=== PATIENT | male | born 1985 | race Caucasian/White ===

== ENCOUNTER 2017-09-22 08:19 | Day surgery (SDC) | payer BC ==
[2017-09-21 12:56] VITALS: BMI 35.1
[2017-09-22] MEDS ORDERED: Lidocaine 1% w/Epinephrine 1:200K 30 ML VIAL ONE (10:42)
[2017-09-22] MEDS ORDERED: Bacitracin Zinc Ointment 30 gm TUBE ONE (10:42)
[2017-09-22] MEDS ORDERED: Fentanyl 250 MCG/5 ML VIAL ONE (10:47)
[2017-09-22] MEDS ORDERED: Midazolam HCl 2 mg/2 ml Vial ONE (10:47)
[2017-09-22] MEDS ORDERED: Fentanyl 100 MCG/2 ML VIAL ONE ×2 (12:37→12:53)
[2017-09-22] MEDS ORDERED: HYDROcodone/Acetaminophen 5/325 mg Tablet ONE (15:04)
[2017-09-22] MEDS ORDERED: Succinylcholine Chloride 20 MG/ML 10 ml SYRINGE FS ONE (15:16)
[2017-09-22] MEDS ORDERED: Propofol 200 MG/20 ML VIAL ONE (15:16)
[2017-09-22] MEDS ORDERED: Lidocaine 1% PF 5 ML VIAL ONE (15:16)
[2017-09-22] MEDS ORDERED: Esmolol 100 MG/10 ML VIAL ONE (15:16)
[2017-09-22] MEDS ORDERED: Ondansetron HCl/PF 4 MG/2 ML Vial ONE (15:16)
[2017-09-22] MEDS ORDERED: Dexamethasone 20 MG/5 ML VIAL ONE (15:16)
--- NOTE | 2017-09-23 14:28 | OP ---
DATE OF SURGERY: 09/22/2017 PREOPERATIVE DIAGNOSIS: Right parotid mass. POSTOPERATIVE DIAGNOSIS: Right parotid mass. PROCEDURES: Right superficial parotidectomy with facial nerve monitor. SURGEON: Cesar Connell M.D. ESTIMATED BLOOD LOSS: 20 mL COMPLICATIONS: None. ANESTHESIA: GETA. PROCEDURE IN DETAIL: The patient was taken to the operating room and placed supine on the table. Ge neral endotracheal anesthesia was obtained by the Anesthesia staff. Tube was secured in the left low er lip. Shoulder roll was placed, and the patient's head was gently turned exposing the right face a nd right parotid gland. Following this, the intraoperative facial nerve monitor electrodes were inse rted into the orbicularis chanel and the orbicularis oculi muscles were tested and noted to be working adequately and remained on throughout the procedure. Following this, the patient was prepped and cory ped in standard surgical fashion. Following this, 8 mL of 1% lidocaine with 1:100,000 epinephrine wa s injected via a 27-gauge needle into an area of the anticipated modified Shashi-type incision. Follo wing this, an incision was made with a 15 blade through skin and subcutaneous tissue in the preauricu lar crease and then extending around the earlobe approximately 1.5 cm and then carried onto a horizon nicolás skin crease in the neck approximately 2 cm below the angle of mandible. Following this, a fat up and fat down skin flap was elevated, exposing the parotid gland. Following this, the parotid gland and tail of the parotid gland was freed from the sternocleidomastoid muscle, it was then retracted an teriorly. Dissection was then carried down the tragal cartilage to the mastoid bone. The stylomasto id foramen was gently palpated, and the facial nerve was identified coursing from this. The dissecti on lateral to the nerve revealed the superior and inferior divisions of the nerve as the nerve was tr aced laterally. This 2.5 cm mass in a normal cuff of tissue was removed, superficial parotid gland. Following this, the wound was irrigated, a small drain was placed, and fascia of the residual paroti d gland was used to cover the large surgical defect after removal of the mass, and then the platysmal stitches were reapproximated with a Monocryl stitch, and subcuticular stitches were placed using Mon ocryl. Skin was closed using Prolene. The patient tolerated the procedure well.
== END 2017-09-22 15:20 | disposition home or self-care (01) ==
LOC: SDC 08:19
PROVIDERS: ATTEND Otolaryngology Plastic Surgery within the Head & Neck
PROC: 0CT80ZZ Resection of Right Parotid Gland, Open Approach (ICD-10-PCS; principal; 2017-09-22)
DX: C07 Malignant neoplasm of parotid gland (principal); F17.290 Nicotine dependence, other tobacco product, uncomplicated; Z98.818 Other dental procedure status; Z98.890 Other specified postprocedural states
CPT/HCPCS: 88307; 88342; 96374; J1100; J2001; J2250; J2405; J2704; J3010